=== PATIENT | male | born 1980 | race Caucasian/White ===

== ENCOUNTER 2017-08-21 16:36 | Emergency (ER) | payer SELFPAY ==
[~2017-08-21] VITALS: Ht 170.2 cm; Wt 65.4 kg
[2017-08-21 16:38] VITALS: BP 129/84
== END 2017-08-21 18:42 | disposition home or self-care (01) ==
LOC: ED 18:31
DX: M79.671 Pain in right foot (principal); G89.29 Other chronic pain; M54.5 Low back pain; F17.200 Nicotine dependence, unspecified, uncomplicated; W01.190A Fall on same level from slipping, tripping and stumbling with subsequent striking against furniture, initial encounter; Y93.89 Activity, other specified; Y99.8 Other external cause status; Y92.89 Other specified places as the place of occurrence of the external cause
CPT/HCPCS: 99284

== ENCOUNTER 2021-02-12 07:03 | Emergency (ER) | payer SELFPAY ==
[~2021-02-12] VITALS: Ht 170.2 cm; Wt 72.2 kg
[2021-02-12 07:13] VITALS: BP 148/91
--- NOTE | 2021-02-12 07:58 | NUR ---
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
== END 2021-02-12 08:26 | disposition home or self-care (01) ==
LOC: ED 08:10
DX: K02.9 Dental caries, unspecified (principal)
CPT/HCPCS: 99283